=== PATIENT | female | born 1985 | race Caucasian/White ===

== ENCOUNTER 2022-03-02 16:39 | Emergency (ER) | payer MEDICAID ==
[~2022-03-02] VITALS: Ht 167.6 cm; Wt 59.0 kg
--- NOTE | 2022-03-02 16:51 | NUR ---
PT SEEN AND EVALUATED BY DR HENRY.
[2022-03-02] MEDS ORDERED: KETOROLAC TROMETHAMINE 15 MG INJ ONE (16:54)
[2022-03-02] MEDS ORDERED: PENI500T PO (16:58)
[2022-03-02] MEDS ORDERED: KETOROLAC TROMETHAMINE 15 MG INJ IM ONE (17:00)
--- NOTE | 2022-03-02 17:00 | NUR ---
PT MEDICATED FOR PAIN PER MD ORDER
--- NOTE | 2022-03-02 17:03 | NUR ---
DISCHARGE INSTRUCTIONS GIVEN BY
[2022-03-02 17:05] VITALS: BP 128/84
== END 2022-03-02 17:05 | disposition home or self-care (01) ==
LOC: ER 16:39
DX: K08.89 Other specified disorders of teeth and supporting structures (principal)
CPT/HCPCS: 99283; 96372; J1885; A4663